=== PATIENT | male | born 1965 | race Hispanic/Latino ===

== ENCOUNTER → 2018-08-30 | Outpatient (CLI) | payer MEDICAID | END | disposition home or self-care (01) | LOC: SLP 19:55 | PROVIDERS: ATTEND Family Medicine | DX: G47.39 Other sleep apnea (principal); I10 Essential (primary) hypertension | CPT/HCPCS: 95810 ==

== ENCOUNTER → 2018-09-16 | Outpatient (CLI) | payer MEDICAID | END | disposition home or self-care (01) | LOC: SLP 20:12 | PROVIDERS: ATTEND Family Medicine | DX: G47.30 Sleep apnea, unspecified (principal); I10 Essential (primary) hypertension | CPT/HCPCS: 95811 ==